=== PATIENT | male | born 1960 | race Caucasian/White ===

== ENCOUNTER 2025-02-21 11:18 | Emergency (ER) | payer OTHER ==
[2025-02-21] MEDS: Tetracaine HCl/PF 0.5% 4 ML Bottle EYERT ONE ×2 (12:25)
== END 2025-02-21 12:50 | disposition home or self-care (01) ==
LOC: JP.ED 11:18
DX: S05.01XA Injury of conjunctiva and corneal abrasion without foreign body, right eye, initial encounter (principal); X58.XXXA Exposure to other specified factors, initial encounter
CPT/HCPCS: 99283